=== PATIENT | female | born 1985 | race Asian ===

== ENCOUNTER 2016-10-05 15:58 | Observation (INO) | payer SELFPAY ==
[~2016-10-05] VITALS: Ht 168 cm; Wt 72.0 kg
[2016-10-05 17:05] VITALS: BP 106/53; PULSE 90; RESP 18; TEMP 98.1
== END 2016-10-05 17:15 | disposition home or self-care (01) ==
LOC: EDBD → SPU 15:58
PROVIDERS: ADMIT Obstetrics & Gynecology; ATTEND Obstetrics & Gynecology
DX: Z34.93 Encounter for supervision of normal pregnancy, unspecified, third trimester (principal); O48.0 Post-term pregnancy; Z3A.40 40 weeks gestation of pregnancy
CPT/HCPCS: 59025; G0378

== ENCOUNTER 2016-10-08 15:40 | Inpatient (IN) | payer SELFPAY ==
[~2016-10-08] VITALS: Ht 168 cm; Wt 73.5 kg
[~2016-10-08 15:40] MED LIST: LR 1,000 ML IV.SOLN IV ONE; MORPHINE SULFATE 10MG/10ML PF AMP ONE; NS IRRIG SOLN 1000 ML IR ONE; ONDANSETRON HCL 4 MG/2 ML VIAL ONE; OXYTOCIN 10 UNIT/ML VIAL ONE
[2016-10-08] MEDS ORDERED: CITRIC ACID/SODIUM CITRATE 30 ML UDC PO ONE (16:30)
[2016-10-08] MEDS ORDERED: CEFAZOLIN 2 GM IVPB PREMIX 50 ML IV ONE (16:45)
[2016-10-08 17:05] LABS: BASOPHILS % (AUTO) 0.3 % (0.0-2.0); EOSINOPHILS % (AUTO) 0.5 % (0.0-4.0); HEMATOCRIT 35.4 % (36-48); HEMOGLOBIN 12.2 g/dL (12.0-16.0); LYMPHOCYTES # (AUTO) 1.9 K/uL (1.0-5.5); LYMPHOCYTES % (AUTO) 27.8 % (20.5-51.5); MEAN CORPUSCULAR HEMOGLOBIN 31 pg (27-31); MEAN CORPUSCULAR HGB CONC 35 % (32-36); MEAN CORPUSCULAR VOLUME 90 fL (79.0-98.0); MONOCYTES # (AUTO) 0.6 K/uL (0.0-1.0); MONOCYTES % (AUTO) 8.4 % (1.7-9.3); NEUTROPHILS # (AUTO) 4.2 K/uL (1.8-7.7); PLATELET COUNT (AUTO) 196 K/uL (130-430); RED BLOOD CELL COUNT(AUTO) 3.94 MIL/uL (4.2-6.2); RED CELL DISTRIBUTION WIDTH 12.8 % (9.0-15.0); WHITE BLOOD COUNT (AUTO) 6.7 K/uL (4.8-10.8)
[2016-10-08 17:08] LABS: BILIRUBIN,URINE NEGATIVE (NEGATIVE); BLOOD, URINE NEGATIVE (NEGATIVE); CLARITY/URINE CLEAR (CLEAR); COLOR,URINE YELLOW (YELLOW); GLUCOSE,URINE NEGATIVE (NEGATIVE); KETONES,URINE NEGATIVE (NEGATIVE); LEUKOCYTE ESTERASE ,URINE NEGATIVE (NEGATIVE); NITRITE, URINE NEGATIVE (NEGATIVE); PROTEIN URINE NEGATIVE (NEGATIVE); UROBILINOGEN,URINE 0.2 (0.2-1.0)
[2016-10-08] MEDS ORDERED: MEPERIDINE HCL/PF 25 MG/ML DISP.SYRIN IVP PRN ×2 (17:15)
[2016-10-08] MEDS ORDERED: NALOXONE HCL 1 MG in NACL 0.9% 1,000 ML IV PRN ×4 (17:15)
[2016-10-08] MEDS ORDERED: HYDROmorphone 2 MG/ML VIAL IVP PRN ×2 (17:15)
[2016-10-08] MEDS ORDERED: LR 1,000 ML IV SCH (17:15)
[2016-10-08] MEDS ORDERED: DIPHENHYDRAMINE HCL 50 MG CAPSULE PO PRN (17:15)
[2016-10-08] MEDS ORDERED: KETOROLAC TROMETHAMINE 60 MG/2 ML VIAL IM PRN (17:15)
[2016-10-08] MEDS ORDERED: HYDROmorphone 1 MG INJ. 1 MG/ML AMPUL IVP PRN (17:15)
[2016-10-08] MEDS ORDERED: ONDANSETRON HCL 4 MG/2 ML VIAL IVP PRN (17:15)
[2016-10-08] MEDS ORDERED: NALOXONE HCL 0.4 MG/ML AMP (NARCAN) IVP PRN ×3 (17:15)
[2016-10-08] MEDS ORDERED: DIPHENHYDRAMINE INJ 50 MG/ML VIAL IVP PRN (17:15)
[2016-10-08] MEDS ORDERED: OXYTOCIN/NORMAL SALINE 1,000 ML IV ONE (17:38)
[2016-10-08] MEDS ORDERED: ANUSOL 1 EA SUPP.RECT (PREPARATION H) RC PRN (17:45)
[2016-10-08] MEDS ORDERED: LANOLIN 7 GM OINT. TP PRN (17:45)
[2016-10-08] MEDS ORDERED: HYDROcodone/ACETAMIN 5-325 MG TAB (NORCO/ VICODIN) PO PRN (17:45)
[2016-10-08] MEDS ORDERED: MEASLES,MUMPS&RUBELLA VACC/PF 12500 UNIT/0.5 ML VIAL SUBQ PRN (17:45)
[2016-10-08] MEDS ORDERED: DIPHENHYDRAMINE INJ 50 MG/ML VIAL ONE (19:12)
[2016-10-08 19:17] VITALS: BP_SYST 97
[2016-10-08] MEDS ORDERED: TEMAZEPAM 15 MG CAPSULE PO PRN (21:00)
[2016-10-08] MEDS: CEFAZOLIN 1 GM IVPB PREMIX 50 ML IV SCH (21:54)
[2016-10-09 00:15] VITALS: BP_SYST 93
[2016-10-09] MEDS: CEFAZOLIN 1 GM IVPB PREMIX 50 ML IV SCH ×2 (03:51→10:00)
[2016-10-09] MEDS: IBUPROFEN 600 MG TABLET PO SCH ×3 (05:43→18:00)
[2016-10-09 06:52] LABS: BASOPHILS % (AUTO) 0.2 % (0.0-2.0); EOSINOPHILS % (AUTO) 0.3 % (0.0-4.0); HEMATOCRIT 33.8 % (36-48); HEMOGLOBIN 11.6 g/dL (12.0-16.0); LYMPHOCYTES % (AUTO) 10.3 % (20.5-51.5); MEAN CORPUSCULAR HEMOGLOBIN 31 pg (27-31); MEAN CORPUSCULAR HGB CONC 34 % (32-36); MEAN CORPUSCULAR VOLUME 91 fL (79.0-98.0); MONOCYTES # (AUTO) 0.5 K/uL (0.0-1.0); MONOCYTES % (AUTO) 5.3 % (1.7-9.3); NEUTROPHILS # (AUTO) 8.5 K/uL (1.8-7.7); NEUTROPHILS % (AUTO) 83.9 % (40.0-70.0); PLATELET COUNT (AUTO) 169 K/uL (130-430); RED BLOOD CELL COUNT(AUTO) 3.74 MIL/uL (4.2-6.2); RED CELL DISTRIBUTION WIDTH 12.7 % (9.0-15.0)
[2016-10-09] MEDS: SIMETHICONE 80 MG TAB.CHEW PO PRN ×2 (12:18→21:36)
[2016-10-09] MEDS: OXYCODONE/ACETAMINOPHEN 5-325 TABLET PO PRN ×2 (15:53→20:50)
[2016-10-10] MEDS: OXYCODONE/ACETAMINOPHEN 5-325 TABLET PO PRN ×4 (00:57→22:44)
[2016-10-10] MEDS: DOCUSATE SODIUM 100 MG CAPSULE PO PRN ×2 (12:33→22:43)
[2016-10-10] MEDS: IBUPROFEN 600 MG TABLET PO SCH ×3 (12:33→23:54)
[2016-10-10] MEDS: SIMETHICONE 80 MG TAB.CHEW PO PRN ×4 (12:33→22:43)
[2016-10-11] MEDS: IBUPROFEN 600 MG TABLET PO SCH ×2 (05:54→12:00)
[2016-10-11] MEDS: SIMETHICONE 80 MG TAB.CHEW PO PRN (12:00)
== END 2016-10-11 16:40 | disposition home or self-care (01) | DRG 766 ==
LOC: SPU 15:40
PROVIDERS: ADMIT Obstetrics & Gynecology; ATTEND Obstetrics & Gynecology
PROC: 10D00Z1 Extraction of Products of Conception, Low, Open Approach (ICD-10-PCS; principal; 2016-10-08 17:00)
DX: O34.211 Maternal care for low transverse scar from previous cesarean delivery (principal); O69.81X0 Labor and delivery complicated by cord around neck, without compression, not applicable or unspecified; Z37.0 Single live birth; Z3A.40 40 weeks gestation of pregnancy
CPT/HCPCS: 36415; 81003; 85025; 86886; 86900; 86901; 94010; 94760; J0690; J1200; J2274; J2405; J2590; J7120